=== PATIENT | female | born 1950 | race Caucasian/White ===

== ENCOUNTER 2017-09-12 11:51 | Day surgery (SDC) | payer MEDICARE, OTHER ==
[~2017-09-12] VITALS: Ht 175.3 cm; Wt 89.8 kg
[~2017-09-12 11:51] MED LIST: ALEVE220 M1 PO; AMBIEN10 MG PO; BENADRYL25 MG PO; DOCUSATE SODIU100 MG PO; HYDROMORPHONE E16 MG PO; LORAZEPAM1 MG PO; MILK OF MA400 MG/5 M PO; MIRALAX17 GM PO; NEURONTIN300 MG PO; ONDANSETRON ODT4 MG PO; OXYCONTIN30 MG PO; VENTOLIN HFA18 GM INH
--- NOTE | 2017-09-12 12:24 | NUR ---
NEUROSURGEON IN ROOM BLOOD GIVEN TO HER.
--- NOTE | 2017-09-12 13:16 | NUR ---
09/12/17 1316 Nadya Weber 1307-PATIENT ARRIVED TO PACU ON 3L NC O2 SAT 98% PATIENT AWAKE BANDAID CDI. DENIES PAIN OR NAUSEA.
== END 2017-09-12 13:45 | disposition home or self-care (01) ==
LOC: DS 11:51
PROVIDERS: Specialist
PROC: 079T3ZX Drainage of Bone Marrow, Percutaneous Approach, Diagnostic (ICD-10-PCS; 2017-09-12)
PROC: 07DR3ZX Extraction of Iliac Bone Marrow, Percutaneous Approach, Diagnostic (ICD-10-PCS; principal; 2017-09-12 12:00)
DX: C83.00 Small cell B-cell lymphoma, unspecified site (principal); G40.909 Epilepsy, unspecified, not intractable, without status epilepticus; Z98.890 Other specified postprocedural states; Z91.09 Other allergy status, other than to drugs and biological substances
CPT/HCPCS: 80053; 82232; 83615; 83883; 84155; 84165; 85025; 85810; 99152; 99153; J2250; J3010; J7120